=== PATIENT | male | born 1990 | race Caucasian/White ===

== ENCOUNTER → 2023-08-06 09:59 | Outpatient (CLI) | payer OTHER, SELFPAY ==
--- NOTE | 2023-08-06 10:04 | DI.RAD.S_ITS ---
PROCEDURE: XR CERVICAL SPINE 4V OR 5V INDICATIONS: Cervical Strain, left sided pain TECHNIQUE: 5 views of the cervical spine acquired. COMPARISON: None. FINDINGS: Bones: No fractures or dislocations to the C7 level. Straightening of the normal cervical lordosis. Vertebral body height and disc spaces are relatively maintained. Oblique images demonstrate apparent mild osseous neural foraminal narrowing at C6-C7 and C7-T1. Soft tissues: No prevertebral soft tissue swelling. IMPRESSION: 1. No acute osseous abnormality. 2. Straightening of the normal cervical lordosis which may be secondary to muscular strain/spasm. 3. Oblique views demonstrate apparent mild osseous neural foraminal narrowing at C6-C7 and C7-T1 which may be secondary to patient positioning. Dictated by: eMi Montano M.D. on 08/18/2023 at 11:04 Approved by: Mei Montano M.D. on 08/18/2023 at 11:07
== END ==
PROVIDERS: Referring Provider Nurse Practitioner Family; Visit Provider Nurse Practitioner Family
DX: S16.1XXA Strain of muscle, fascia and tendon at neck level, initial encounter (principal); X58.XXXA Exposure to other specified factors, initial encounter
CPT/HCPCS: 72050

== ENCOUNTER → 2025-01-12 08:53 | Outpatient (CLI) | payer OTHER, SELFPAY ==
[2025-01-12 10:10] LABS: Add Manual Diff / Slide Review NO; Hematocrit 48.0 % (41-53); Hemoglobin 16.3 g/dL (13.5-17.5); Lymphocytes Absolute Auto 3300 /uL (1100-4500); Mean Corpuscular HGB Conc 34.0 % (30-36); Mean Corpuscular Hemoglobin 31.0 PG (26-34); Mean Corpuscular Volume 91.1 fL (80-100); Platelet Count 203 X10^3/uL (150-400)
[2025-01-12 10:20] LABS: Hemoglobin A1C% w Est Avg Glu 5.4 % (4.0-6.0)
[2025-01-12 10:48] LABS: Alanine Aminotransferase 24 IU/L (<50); Albumin 4.6 g/dL (3.5-5.0); Albumin Globulin Ratio 1.8 (1.0-2.8); Alkaline Phosphatase 91 U/L (38-126); Blood Urea Nitrogen 20 mg/dL (9-20); Calcium 9.3 mg/dL (8.4-10.2); Carbon Dioxide 26 mmol/L (22-32); Chloride 105 mmol/L (98-107); Cholesterol 272 mg/dL (140-199); Estimated Glomerular Filt Rate > 60 mL/min (>60); Globulin 2.6 g/dL (1.7-4.1); Glucose 79 mg/dL (70-99); HDL Cholesterol 46 mg/dL (40-60); HEMOLYSIS < 15 (0-50); Potassium 4.8 mmol/L (3.4-5.1); Sodium 140 mmol/L (137-145); Total Protein 7.2 g/dL (6.3-8.2); Triglycerides 78 mg/dL (35-150)
== END ==
PROVIDERS: PCP Family Medicine; Referring Provider Family Medicine; Visit Provider Family Medicine
DX: Z13.1 Encounter for screening for diabetes mellitus (principal); Z13.220 Encounter for screening for lipoid disorders; R55 Syncope and collapse
CPT/HCPCS: 36415; 80053; 80061; 83036; 85025